=== PATIENT | male | born 1960 | race Caucasian/White ===

== ENCOUNTER 2018-02-12 22:35 | Emergency (ER) | payer MEDICAID, OTHER ==
[2018-02-13] MEDS: CYCLOBENZAPRINE 10 MG TAB PO (02:03)
[2018-02-13] MEDS: HYDROCODONE/APAP (10/325) TAB PO (02:03)
== END 2018-02-13 02:39 | disposition home or self-care (01) ==
LOC: FTE 22:35
DX: M54.5 Low back pain (principal)
CPT/HCPCS: 99283; Z7502